=== PATIENT | female | born 1990 ===

== ENCOUNTER 2021-10-17 12:06 | Inpatient (IN) ==
[2021-10-17] MEDS ORDERED: ONDANSETRON 4 MG/2 ML VIAL IV PRN (12:27)
[2021-10-17] MEDS ORDERED: BUTORPHANOL 2 MG/ML VIAL IV PRN (12:27)
[2021-10-17] MEDS ORDERED: LACTATED RINGERS 1,000 ML IV ONE (12:28)
[2021-10-17] MEDS ORDERED: hydrOXYzine HCL 25 MG/1 ML VIAL IM PRN (12:28)
[2021-10-17] MEDS ORDERED: PROMETHAZINE 25 MG/1 ML VIAL IM PRN (12:28)
[2021-10-17] MEDS ORDERED: diphenhydrAMINE 50 MG/1 ML VIAL IV PRN (12:28)
[2021-10-17] MEDS ORDERED: ePHEDrine 50 MG/ML VIAL IV PRN (12:28)
[2021-10-17] MEDS ORDERED: NALOXONE 0.4 MG/ML VIAL IV PRN (12:28)
[2021-10-17] MEDS ORDERED: CITRIC ACID/SODIUM CITRATE 30 ML UDCUP PO ONE (12:28)
[2021-10-17 12:38] LABS: Mucus,Urine Moderate /LPF (Occasional); RBC,Urine 2 /HPF (0-4); Squamous Epithelial Cell,Urine Occasional /HPF (0-10)
[2021-10-17 12:39] LABS: Bilirubin,Urine Negative (Negative); Blood, Urine Negative (Negative); Glucose,Urine (UA) Negative (Negative); Ketones,Urine 1+ mg/dL (Negative); Nitrite,Urine Negative (Negative); Protein,Urine 2+ mg/dL (Negative); Urine Appearance Clear (Clear); Urine Color Yellow (Yellow); Urine Specific Gravity 1.026 (1.001-1.035); Urine pH 6.5 (4.5-8.0)
[2021-10-17] MEDS ORDERED: MEPERIDINE 50 MG/1 ML VIAL IV PRN (12:40)
[2021-10-17 12:53] LABS: Basophils % 0.1 % (0.0-0.8); Hematocrit 33.1 VOL% (35.7-47.0); Hemoglobin 10.7 GM/DL (12.0-16.0); Immature Granulocytes % 0.5 %; Immature Granulocytes Absolute 0.07 #; Lymphocytes # 1.1 10*3/uL (1.4-4.0); Lymphocytes % 8.1 % (21.3-54.2); Mean Corpuscular HGB Conc 32.3 GM/DL (32-36); Mean Corpuscular Volume 89.2 FL (87-102); Mean Platelet Volume 9.5 FL (9.6-12.0); Monocytes % 4.1 % (1.7-12.7); Neutrophils % 87.2 % (38.7-73.9); Platelet Count 273 T/CUMM (130-400); Red Blood Count 3.71 MC/CUMM (3.8-5.5); Red Cell Distribution Width 13.8 % (9.3-17.3); White Blood Count 13.3 T/CUMM (4-12)
[2021-10-17] MEDS ORDERED: fentaNYL 2 MCG/ROPIV 0.2% EPID 100 ML EPIDURAL SCH (13:00)
[2021-10-17] MEDS ORDERED: LACTATED RINGERS 1,000 ML IV SCH (13:00)
[2021-10-17] MEDS ORDERED: FAMOTIDINE 20 MG/2 ML VIAL IV ONE (13:00)
[2021-10-17 13:19] LABS: Alanine Aminotransferase < 9 U/L (13-56); Albumin 2.5 G/DL (3.4-5.0); Alkaline Phosphatase 224 U/L (45-117); Aspartate Amino Transferase 13 U/L (0-37); Blood Urea Nitrogen 18 MG/DL (7-18); Calcium 8.4 MG/DL (8.5-10.1); Carbon Dioxide 21 MMOL/L (21-32); Estimated Glom Filtration Rate 104 ML/MIN; Glucose 145 MG/DL (74-106); Osmolality,Calculated 281.5 MOS/KG (273-304); Potassium 3.5 MMOL/L (3.5-5.1); Sodium 139 MMOL/L (136-145); Uric Acid 6.3 MG/DL (2.6-6.0)
[2021-10-17 13:36] LABS: Hepatitis B Surface Ag Quant 0.17 Index; Hepatitis B Surface Ag Result Non-Reactive (NonReactive)
[2021-10-17 13:42] LABS: Barbiturates Screen,Urine Negative (Negative); Benzodiazepines Screen,Urine Negative (Negative); Cannabinoid Screen,Urine Positive (Negative); Opiate Screen,Urine Positive (Negative); Phencyclidine Screen,Urine Negative (Negative)
[2021-10-17 13:49] LABS: HIV Antigen/Antibody Result Nonreactive (Nonreactive)
[2021-10-17] MEDS ORDERED: METHYLERGONOVINE 0.2 MG/1 ML AMP ONE (14:56)
[2021-10-17] MEDS ORDERED: miSOPROStoL 200 MCG TABLET ONE (14:56)
[2021-10-17] MEDS ORDERED: TRANEXAMIC ACID 1,000 MG/10 ML VIAL ONE (14:56)
[2021-10-17] MEDS ORDERED: SODIUM CHLORIDE 0.9% 0 ML IV ONE (14:56)
[2021-10-17] MEDS ORDERED: OXYTOCIN/LR 20 UNIT/1,000 ML BAG IV ONE ×3 (14:56→21:00)
[2021-10-17] MEDS ORDERED: CARBOPROST TROMETHAMINE 250 MCG/ML AMP IM ONE (14:57)
[2021-10-17 16:15] LABS: Cord Venous Blood HCO3 20.8 MMOL/L; Cord Venous Blood PCO2 47.5 MMHG; Cord Venous Blood PO2 36.6
[2021-10-17] MEDS ORDERED: miSOPROStoL 200 MCG TABLET RECTAL ONE (16:45)
[2021-10-17] MEDS ORDERED: NIFEdipine 10 MG CAPSULE PO ONE ×2 (17:52→18:20)
[2021-10-17] MEDS ORDERED: IBUPROFEN 800 MG TABLET PO PRN (22:00)
[2021-10-17] MEDS: DOCUSATE SODIUM 100 MG CAPSULE PO SCH (22:12)
[2021-10-18 06:05] LABS: Basophils % 0.1 % (0.0-0.8); Eosinophils % 0.2 % (0.00-10.9); Hematocrit 24.6 VOL% (35.7-47.0); Immature Granulocytes % 0.5 %; Immature Granulocytes Absolute 0.05 #; Lymphocytes # 2.7 10*3/uL (1.4-4.0); Lymphocytes % 28.8 % (21.3-54.2); Mean Corpuscular HGB Conc 32.5 GM/DL (32-36); Mean Corpuscular Volume 87.5 FL (87-102); Mean Platelet Volume 9.9 FL (9.6-12.0); Monocytes % 6.1 % (1.7-12.7); Neutrophils % 64.3 % (38.7-73.9); Platelet Count 205 T/CUMM (130-400); Red Blood Count 2.81 MC/CUMM (3.8-5.5); Red Cell Distribution Width 13.7 % (9.3-17.3); White Blood Count 9.5 T/CUMM (4-12)
[2021-10-18] MEDS ORDERED: FERROUS SULFATE 325 MG TABLET PO SCH (09:00)
[2021-10-18] MEDS: DOCUSATE SODIUM 100 MG CAPSULE PO SCH ×2 (09:09→21:30)
[2021-10-18 12:26] LABS: Measles IgG Antibody Index 0.6
[2021-10-19] MEDS: DOCUSATE SODIUM 100 MG CAPSULE PO SCH (08:49)
[2021-10-19] MEDS ORDERED: FERROUS SULFATE 325 MG TABLET PO SCH (09:00)
[2021-10-19 10:31] VITALS: BP 136/86
[2021-10-19] MEDS ORDERED: INFLUENZA VIRUS VACCINE 0.5 ML SYRINGE IM ONE (12:33)
== END 2021-10-19 11:16 | disposition home or self-care (01) | DRG 806 ==
LOC: N.LDOUT 12:06 → N.LD 12:30 → N.OB 21:35
PROVIDERS: ADMIT Obstetrics & Gynecology; ATTEND Obstetrics & Gynecology